=== PATIENT | female | born 1945 | race Caucasian/White ===

== ENCOUNTER 2020-04-20 11:09 | Outpatient (REF) | payer MEDICARE, MEDICAID, SELFPAY ==
[2020-04-20 13:49] LABS: MANUAL DIFF FLAG NO
[2020-04-20 13:56] LABS: Basophils Percent Auto 0.4 % (0-2); Eosinophils Absolute Auto 0.3 X10*3/uL (0.0-0.4); Eosinophils Percent Auto 3.7 % (0-4); Hematocrit 46.5 % (37-47); Hemoglobin 14.6 g/dl (12.0-16.0); Imm Gran Abs Auto 0.01 X10*3/uL (0.00-0.03); Imm Gran Pct Auto 0.1 % (0.0-0.4); Lymphocytes Absolute Auto 1.8 X10*3/uL (1.2-4.9); Mean Corpuscular HGB Conc 31.4 g/dl (31.0-35.0); Mean Corpuscular Hemoglobin 29.6 pg (27.0-33.0); Mean Corpuscular Volume 94.3 fL (80-98); Mean Platelet Volume 10.3 fL (9.4-12.3); Monocytes Absolute Auto 0.8 X10*3/uL (0.1-1.2); Monocytes Percent Auto 10.7 % (2-11); Neutrophils Absolute Auto 4.3 X10*3/uL (2.0-8.3); Neutrophils Percent Auto 60.1 % (45-73); Platelet Count 281 X10*3/uL (160-400); Red Blood Count 4.93 X10*6/uL (4.20-5.50); Red Cell Distribution Width 12.9 % (11.0-16.0); White Blood Count 7.1 X10*3/uL (4.8-10.8)
[2020-04-20 14:05] LABS: Estimated Average Glucose 134 mg/dL; Hemoglobin A1c % 6.3 %
[2020-04-20 14:26] LABS: Alanine Aminotransferase 15 U/L (0-31); Alkaline Phosphatase 95 U/L (39-117); Anion Gap 11 (12-20); Aspartate Amino Transferase 17 U/L (5-31); Bilirubin Total 0.7 mg/dL (0.0-1.0); Blood Urea Nitrogen 16 mg/dL (9-16); Calcium 8.7 mg/dL (8.4-10.2); Carbon Dioxide 31 mmol/L (22-29); Chloride 103 mmol/L (96-108); Estimated Glomerular Filt Rate > 60; Glucose Random 104 mg/dL (60-115); Potassium 4.2 mmol/l (3.3-5.1); Sodium 141 mmol/L (135-145); Total Protein 7.3 g/dL (6.5-8.0)
[2020-04-20 14:58] LABS: Creatinine Urine 355.75 mg/dL; Microalbum/Creatinine Ratio Ur 15.4 ug/mg cr
== END 2020-04-20 11:10 | disposition home or self-care (01) ==
LOC: HO.10HDL 11:09
PROVIDERS: PCP Internal Medicine; Visit Provider Internal Medicine
DX: I12.9 Hypertensive chronic kidney disease with stage 1 through stage 4 chronic kidney disease, or unspecified chronic kidney disease (principal); E11.22 Type 2 diabetes mellitus with diabetic chronic kidney disease; N18.9 Chronic kidney disease, unspecified
CPT/HCPCS: 36415; 80053; 82043; 83036; 85025

== ENCOUNTER 2021-02-01 11:56 | Outpatient (REF) | payer MEDICARE, MEDICAID, SELFPAY ==
[2021-02-01 14:10] LABS: MANUAL DIFF FLAG NO
[2021-02-01 14:16] LABS: Basophils Percent Auto 0.5 % (0-2); Eosinophils Absolute Auto 0.2 X10*3/uL (0.0-0.4); Eosinophils Percent Auto 3.4 % (0-4); Hemoglobin 14.6 g/dl (12.0-16.0); Imm Gran Abs Auto 0.02 X10*3/uL (0.00-0.03); Imm Gran Pct Auto 0.3 % (0.0-0.4); Lymphocytes Absolute Auto 1.5 X10*3/uL (1.2-4.9); Lymphocytes Percent Auto 23.8 % (20-40); Mean Corpuscular HGB Conc 31.7 g/dl (31.0-35.0); Mean Corpuscular Hemoglobin 29.7 pg (27.0-33.0); Mean Corpuscular Volume 93.5 fL (80-98); Mean Platelet Volume 10.7 fL (9.4-12.3); Monocytes Absolute Auto 0.7 X10*3/uL (0.1-1.2); Monocytes Percent Auto 10.8 % (2-11); Neutrophils Absolute Auto 3.8 X10*3/uL (2.0-8.3); Neutrophils Percent Auto 61.2 % (45-73); Platelet Count 270 X10*3/uL (160-400); Red Blood Count 4.92 X10*6/uL (4.20-5.50); Red Cell Distribution Width 12.9 % (11.0-16.0); White Blood Count 6.2 X10*3/uL (4.8-10.8)
[2021-02-01 14:25] LABS: Estimated Average Glucose 131 mg/dL; Hemoglobin A1c % 6.2 %
[2021-02-01 14:34] LABS: Alanine Aminotransferase 19 U/L (0-31); Alkaline Phosphatase 107 U/L (39-117); Anion Gap 13 (12-20); Aspartate Amino Transferase 17 U/L (5-31); Bilirubin Total 0.8 mg/dL (0.0-1.0); Blood Urea Nitrogen 15 mg/dL (9-16); C Reactive Protein 0.56 mg/dL (< or = 0.50); Calcium 9.4 mg/dL (8.4-10.2); Carbon Dioxide 29 mmol/L (22-29); Chloride 106 mmol/L (96-108); Cholesterol 171 mg/dL; Estimated Glomerular Filt Rate 55; Glucose Random 121 mg/dL (60-115); HDL Cholesterol 33 mg/dL; LDL Cholesterol Calculated 112 mg/dl; Potassium 4.2 mmol/L (3.3-5.1); Sodium 144 mmol/L (135-145); Total Protein 7.3 g/dL (6.5-8.0); Triglycerides 131 mg/dL
[2021-02-01 14:37] LABS: Creatinine Urine 257.84 mg/dL; Microalbum/Creatinine Ratio Ur 8.9 ug/mg cr
[2021-02-01 14:47] LABS: Vitamin D 25-OH Total 26.1 ng/mL (>30)
[2021-02-06 13:27] LABS: Alpha Fetoprotein 4.9 ng/mL
== END 2021-02-01 11:57 | disposition home or self-care (01) ==
LOC: HO.10HDL 11:56
PROVIDERS: Visit Provider Internal Medicine
DX: E11.9 Type 2 diabetes mellitus without complications (principal); R60.9 Edema, unspecified; I10 Essential (primary) hypertension; L40.9 Psoriasis, unspecified; E55.9 Vitamin D deficiency, unspecified
CPT/HCPCS: 36415; 80053; 80061; 82043; 82105; 82306; 83036; 85025; 86140

== ENCOUNTER 2021-10-11 07:36 | Outpatient (REF) | payer MEDICARE, MEDICAID, SELFPAY ==
[2021-10-11 08:43] LABS: MANUAL DIFF FLAG NO
[2021-10-11 08:47] LABS: Appearance Urine HAZY; Color Urine YELLOW; Glucose Urine UA NEG (NEG); Leukocyte Esterase Urine 1+ (NEG); Nitrite Urine NEG (NEG); PH 5.5 (5.0-8.0); Specific Gravity - Urine <= 1.005 (1.005-1.025); Urine Blood TRACE (NEG); Urine Ketones NEG (NEG); Urine Protein NEG (NEG-TRACE)
[2021-10-11 08:52] LABS: Basophils Percent Auto 0.3 % (0-2); Eosinophils Absolute Auto 0.2 X10*3/uL (0.0-0.4); Eosinophils Percent Auto 3.1 % (0-4); Hematocrit 43.7 % (37.0-47.0); Hemoglobin 14.1 g/dl (12.0-16.0); Imm Gran Abs Auto 0.02 X10*3/uL (0.00-0.03); Imm Gran Pct Auto 0.3 % (0.0-0.4); Lymphocytes Absolute Auto 1.6 X10*3/uL (1.2-4.9); Mean Corpuscular HGB Conc 32.3 g/dl (31.0-35.0); Mean Corpuscular Hemoglobin 29.9 pg (27.0-33.0); Mean Corpuscular Volume 92.8 fL (80.0-98.0); Mean Platelet Volume 10.2 fL (9.4-12.3); Monocytes Absolute Auto 0.8 X10*3/uL (0.1-1.2); Neutrophils Absolute Auto 4.9 x10*3/uL (2.0-8.3); Neutrophils Percent Auto 65.3 % (45-73); Platelet Count 267 X10*3/uL (160-400); Red Blood Count 4.71 X10*6/uL (4.20-5.50); Red Cell Distribution Width 13.1 % (11.0-16.0); White Blood Count 7.5 X10*3/uL (4.8-10.8)
[2021-10-11 08:55] LABS: Estimated Average Glucose 143 mg/dL; Hemoglobin A1c % 6.6 %
[2021-10-11 09:01] LABS: Alanine Aminotransferase 17 U/L (0-31); Albumin Level 3.8 g/dL (3.5-5.0); Alkaline Phosphatase 101 U/L (39-117); Anion Gap 12 (12-20); Aspartate Amino Transferase 17 U/L (5-31); Bilirubin Total 0.6 mg/dL (0.0-1.0); Blood Urea Nitrogen 15 mg/dL (9-16); Carbon Dioxide 30 mmol/L (22-29); Chloride 104 mmol/L (96-108); Estimated Glomerular Filt Rate > 60; Glucose Random 166 mg/dL (60-115); Potassium 3.9 mmol/L (3.3-5.1); Sodium 142 mmol/L (135-145)
[2021-10-11 09:05] LABS: B Type Natriuretic Peptide 123 pg/mL (<100)
[2021-10-11 09:16] LABS: Bacteria Urine TRACE /LPF; Squamous Epithelial Cell Urine 2+ /LPF
[2021-10-11 09:21] LABS: Vitamin D 25-OH Total 16.8 ng/mL (>30)
[2021-10-11 09:29] LABS: Creatinine Urine 68.61 mg/dL; Microalbum/Creatinine Ratio Ur 17.4 ug/mg cr
== END 2021-10-11 07:37 | disposition home or self-care (01) ==
LOC: HO.10HDL 07:36
PROVIDERS: Visit Provider Internal Medicine
DX: I12.9 Hypertensive chronic kidney disease with stage 1 through stage 4 chronic kidney disease, or unspecified chronic kidney disease (principal); N18.9 Chronic kidney disease, unspecified; R60.0 Localized edema; E55.9 Vitamin D deficiency, unspecified; L40.9 Psoriasis, unspecified; R73.03 Prediabetes
CPT/HCPCS: 36415; 80053; 81001; 82043; 82306; 83036; 83880; 85025

== ENCOUNTER → 2021-11-14 09:29 | Outpatient (REF) | payer MEDICARE, MEDICAID, SELFPAY ==
--- NOTE | 2021-11-14 09:34 | CA_ITS ---
Transthoracic Echocardiogram Patient (Last, First, Middle): Hayley Rueda M Gender: Female Date of : 1945 Age: 76 Procedure Date: 11/14/2021 Procedure Type: Transthoracic Echocardiogram Location: OP Height: 170.18 cm Weight: 113.4 kg BSA: 2.22 m2 Heart Rate: bpm BP: 120 / 69 mmHg Metal Model Maker: DANUTA Referring MD: Carroll Garcia MD Basket Braider: Reese Brito MD Symptoms: I35.0 NON RHEUM , Study Quality: Adequate ECG Rhythm: Sinus Conclusions: - 1. Normal LV systolic function with mild LVH with impaired relaxation filling pattern 2. Moderately dilated left atrium 3. Moderate to severe aortic stenosis with mean gradient of 44 mm Hg which is significantly increased compared to prior study 4. No gross pericardial effusion Findings Left Ventricle Normal left ventricular size and systolic function. There is mildly increased left ventricular wall thickness. The visually estimated ejection fraction is between 60-65%. Spectral Doppler is indicative of an impaired relaxation filling pattern. E/E prime ratio is between 8 and 15 consistent with indeterminate filling pressures. Right Ventricle Normal right ventricular cavity size and systolic function. Atria The left atrium is moderately dilated. Interatrial shunt cannot be excluded. The right atrium is normal in size. Aortic Valve There is moderate to severe aortic valve stenosis. Mitral Valve There is moderate anterior and severe posterior mitral leaflet thickening. There is severe mitral annular calcification. There is mild mitral valve regurgitation. Pulmonic Valve The pulmonic valve was not well visualized. Tricuspid Valve Likely normal tricuspid valve structure and function. Tricuspid regurgitation envelope is inadequate for calculation of right ventricular systolic pressure. Normal right atrial pressure. Great Vessels All visible segments of the aorta are normal in size. The pulmonary artery was not well visualized. Venous The inferior vena cava is normal in size and collapses greater than 50% with inspiration. Pericardium/Pleural There is no evidence of pericardial effusion. Prior Study Comparison Changes noted compared to prior study dated: 06/18/2018. Aortic stenosis has worsened Measurements 2D Linear Measurements IVSd: 1.50 0.6-0.9/0.6-1.0 cm LVIDd: 4.56 3.9-5.3/4.2-5.9 cm LVIDd Index: 2.05 2.4-3.2/2.2-3.1 cm/m2 LVIDs: 3.37 2.0-3.6 cm LVPWd: 1.31 0.7-1.1 cm LA Diam: 3.70 2.7-3.8/3.0-4.0 cm LAIDs Index: 1.67 1.5-2.3 cm/m2 LV Mass: 317.72 67-162/88-224 g LV Mass Index: 143.12 43-95/49-115 g/m2 LVOT Diam: 2.00 3.0+(-)1.3 cm 2D Systolic Function EF 4C: 58.80 >55% EF 2C: 57.00 >55% EF BiP: 59.70 >55% Mitral Valve MV VTI: 0.61 MV Pk Jakob: 1.72 MV Mn Jakob: 1.17 MV Pk Grad: 12.00 MV Mn Grad: 6.00 MV Pk E: 1.56 MV PK A: 1.83 MV Decel Time: 410.00 E/A: 0.90 E'Lateral: 5.98 E'Medial: 4.57 E/E' Med: 34.10 E/E' Lat: 26.10 PHT: 120.00 MVA PHT: 1.83 MVA Continuity: 2.30 Decel Kent: 3.81 Aortic Valve AoV Pk Jakob: 4.28 AoV Mn Jakob: 3.15 AoV VTI: 1.24 AoV Pk Grad: 73.00 Aov Mn Grad: 44.00 KELLI Cont.VTI: 1.03 LVOT LVOT Pk Jakob: 1.27 LVOT Mn Jakob: 0.92 LVOT VTI: 0.41 LVOT Pk Grad: 6.00 LVOT Mn Grad: 4.00 LVOT Diam: 2.00 LVOT Area: 3.14 Diastolic Function MV Pk E: 1.56 MV Pk A: 1.83 E/A: 0.90 E'Medial: 4.57 E/E' Med: 34.10 E' Laterial: 5.98 E/E' Lat: 26.10 Right Ventricle TAPSE (mm): 26.20 TVS' Jakob: 11.10 Tricuspid Valve RA Press: 3.00 Great Vessels Aorta Sinus of Valsalva: 3.16 2.0-3.[address] Ridge: 2.80 1.7-3.4 cm Ao Asc: 3.20 2.1-3.4 cm Updated in Other Vendor System with Status of Final Reese Brito MD electronically signed on 11/15/2021 2:14:42 PM with status of Final
== END ==
LOC: HO.CARD 09:29
PROVIDERS: Visit Provider Internal Medicine
DX: I35.0 Nonrheumatic aortic (valve) stenosis (principal)
CPT/HCPCS: 93306

== ENCOUNTER 2023-09-14 07:17 | Outpatient (REF) | payer MEDICARE, MEDICAID, SELFPAY ==
--- NOTE | ~2023-09-14 | XR_ITS ---
EXAMINATION: XR FOOT, RIGHT CLINICAL INFORMATION: Rule out heel spur. COMPARISON: None available. TECHNIQUE: AP, lateral, and oblique views of the right foot. FINDINGS: Radiopaque marker placed by technologist to indicate the area of concern as indicated by the patient along the posterior aspect of the calcaneus/heel. Hypertrophic change with ossific densities along the posterior aspect of the calcaneus at site of Achilles tendon insertion with focal swelling and thickening of the overlying soft tissues/tendon. The bones are diffusely demineralized. Moderate osteoarthritic changes in the first metatarsophalangeal joint, tarsometatarsal joints and in scattered IP joints of the toes. XR/XR foot RT min 3V IMPRESSION: 1. Hypertrophic change with tiny ossific densities along the posterior aspect of the calcaneus at site of Achilles tendon insertion with focal swelling and thickening of the overlying soft tissues/tendon. 2. Moderate osteoarthritic changes in the first metatarsophalangeal joint, tarsometatarsal joints and in scattered IP joints of the toes.
== END 2023-09-14 07:18 | disposition home or self-care (01) ==
LOC: HO.XRAY 07:17
PROVIDERS: PCP Internal Medicine; Visit Provider Internal Medicine
DX: M79.671 Pain in right foot (principal)
CPT/HCPCS: 73630

== ENCOUNTER 2024-10-15 10:09 | Outpatient (AMB) | payer MEDICARE, MEDICAID, SELFPAY ==
--- NOTE | 2024-10-15 10:11 | A.OFFPC_ITS ---
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 pain travels from pinky up to left upper arm. Pain in the finger joints and wrists bilaterally. Chronic right jaw pain Denies diabetes. Last A1C was 6.6%. She has hypertension. BP is elevated-says white coat. Controlled at home. She continues amlodipine and metoprolol. She has a history of moderate to severe aortic stenosis. Last echo 2021. Ordered today. Declines mammo, colonoscopy ROS see HPI PHYSICAL EXAM: GENERAL: Alert and oriented x 3. NAD EYES: EOMI. Anicteric. HENT: Moist mucous membranes. No scleral icterus. No cervical lymphadenopathy. LUNGS: Clear to auscultation bilaterally. CARDIOVASCULAR: Regular rate and rhythm. + murmur. No JVD. ABDOMEN: Soft, non-tender +bs EXTREMITIES: Non pitting edema. Non-tender. SKIN: Psoriatic changes bilateral feet NEUROLOGIC: No focal neurological deficits. CN II-XII grossly intact PSYCHIATRIC: Cooperative. Appropriate mood and affect Questionnaire PHQ-9 Over the last 2 weeks, how often have you been bothered by any of the following problems? 1. Little interest or pleasure in doing things: not at all 2. Feeling down, depressed, or hopeless: not at all 3. Trouble falling or staying asleep, or sleeping too much: not at all 4. Feeling tired or having little energy: not at all 5. Poor appetite or overeating: not at all 6. Feeling bad about yourself - or that you are a failure or have let yourself or your family down: not at all 7. Trouble concentrating on things, such as reading the newspaper or watching television: not at all 8. Moving or speaking so slowly that other people could have noticed. Or the opposite - being so fidgety or restless that you have been moving around a lot more than usual: not at all 9. Thoughts that you would be better off or of hurting yourself in some way: not at all Total score: 0 Depression Screening Interpretation: Negative Depression Screening Done: Yes 81329 - PHQ-9 Billing: Yes Source: Developed by Drs. Ernie Salcedo, Leslye Arredondo, Taye Lincoln and colleagues, with an educational anastasiia from [employer]. Thrive Questionnaire Date Thrive assessed: 10/15/24 I am a: Patient What is your living situation today?: I have a steady place to live Within the past 12 months, did the food you bought not last and you didn't have the money to get more?: Never true Within the past 12 months, did you worry whether your food would run out before you got money to buy more?: Never true Do you have trouble paying for medicines?: No Do you have trouble getting transportation to medical appointments?: No Do you have trouble paying your heating and electricity bill?: No Do you have trouble taking care of your child, family member or friend?: No Do you have trouble with day-to-day activities such as bathing, preparing meals, shopping, managing finances, etc.?: No Are you currently unemployed and looking for a job?: No Are you interested in more education?: No Please select the resources that you would like help with: None THRIVE Score: 0 RAMOS-7 AMB Questionnaire RAMOS-7 Date RAMOS - 7 assessed: 10/15/24 Feeling nervous, anxious, or on edge: 0 = Not at all Not being able to stop or control worryin = Not at all Worrying too much about different things: 0 = Not at all Trouble relaxin = Not at all Being so restless that it is hard to sit still: 0 = Not at all Becoming easily annoyed or irritable: 0 = Not at all Feeling afraid as if something awful might happen: 0 = Not at all Total RAMOS-7 score (0-4 normal; 5-9 mild; 10-14 moderate; 15-21 severe): 0 Source: Developed by Drs. Ernie Salcedo, Leslye Arredondo, Taye Lincoln and colleagues, with an educational anastasiia from [employer]. Physical exam (Primary Care) Vital Signs: Last Vital Signs Temp 97.5 F 10/15/24 10:14 Pulse 66 10/15/24 10:14 Resp 18 10/15/24 10:14 BP 168/80 H 10/15/24 10:14 Pulse Ox 99 10/15/24 10:14 BMI result Body Mass Index 38.5 PHQ-9: PHQ-9 Score PHQ-9: Total score 0 10/15/24 10:18 Depression Screening Interpretation: Negative Thrive Assessment: Date of Thrive Assessment Date Thrive assessed 10/15/24 10/15/24 10:18 Coding Level of Care Code New Pt Level 4 (66957) Complex EM visit Add On G2211 Diagnoses Primary hypertension I10 Hypertension type: primary hypertension Prediabetes R73.03 Aortic valve stenosis, etiology of cardiac valve disease unspecified I35.0 Cardiac valve disease etiology: etiology unspecified Left hand pain M79.642 Additional Codes PHQ-9 - 13314 - PHQ-9 Billing: Yes ([id number]) Assessment & Plan Assessment & Plan (1) Hypertension: Code(s): I10 - Essential (primary) hypertension Category: Medical Qualifiers: Hypertension type: primary hypertension Qualified Code(s): I10 - Essential (primary) hypertension (2) Prediabetes: Code(s): R73.03 - Prediabetes Category: Medical (3) Aortic stenosis: Code(s): I35.0 - Nonrheumatic aortic (valve) stenosis Category: Medical Qualifiers: Cardiac valve disease etiology: etiology unspecified Qualified Code(s): I35.0 - Nonrheumatic aortic (valve) stenosis (4) Left hand pain: Code(s): M79.642 - Pain in left hand Category: Medical Plan 78 year old to establish care past medical surgical social reviewed HTN-poor office control. Says normal at home. Advised to bring cuff to visit -needs updated echo bilateral hand pain-xr left ordered. Declines mobic. voltaren ordered Labs ordered Orders: Orders Complete Blood Count Auto Diff Today I10 - Essential (primary) hypertension, M79.641 - Pain in right hand, M79.642 - Pain in left hand, R73.03 - Prediabetes, Z13.0 - Encounter for screening for diseases of the blood and blood-forming organs and certain disorders involving the immune mechanism, Z13.228 - Encounter for screening for other metabolic disorders Comprehensive Met. Panel Today I10 - Essential (primary) hypertension, M79.641 - Pain in right hand, M79.642 - Pain in left hand, R73.03 - Prediabetes, Z13.0 - Encounter for screening for diseases of the blood and blood-forming organs and certain disorders involving the immune mechanism, Z13.228 - Encounter for screening for other metabolic disorders Rheumatoid Factor Today I10 - Essential (primary) hypertension, M79.641 - Pain in right hand, M79.642 - Pain in left hand, R73.03 - Prediabetes, Z13.0 - Encounter for screening for diseases of the blood and blood-forming organs and certain disorders involving the immune mechanism, Z13.228 - Encounter for screening for other metabolic disorders Cyclic Citrullinated Peptide Today I10 - Essential (primary) hypertension, M79.641 - Pain in right hand, M79.642 - Pain in left hand, R73.03 - Prediabetes, Z13.0 - Encounter for screening for diseases of the blood and blood-forming organs and certain disorders involving the immune mechanism, Z13.228 - Encounter for screening for other metabolic disorders Lipid Panel Today I10 - Essential (primary) hypertension, M79.641 - Pain in right hand, M79.642 - Pain in left hand, R73.03 - Prediabetes, Z13.0 - Encounter for screening for diseases of the blood and blood-forming organs and certain disorders involving the immune mechanism, Z13.228 - Encounter for screening for other metabolic disorders XR hand LT min 3V Today M79.642 - Pain in left hand CA echo transthoracic complete Today I35.0 - Nonrheumatic aortic (valve) stenosis Erythrocyte Sedimentation Rate Today I10 - Essential (primary) hypertension, M 79.641 - Pain in right hand, M79.642 - Pain in left hand, R73.03 - Prediabetes, Z13.0 - Encounter for screening for diseases of the blood and blood-forming organs and certain disorders involving the immune mechanism, Z13.228 - Encounter for screening for other metabolic disorders Hemoglobin A1c Today I10 - Essential (primary) hypertension, M79.641 - Pain in right hand, M79.642 - Pain in left hand, R73.03 - Prediabetes, Z13.0 - Encounter for screening for diseases of the blood and blood-forming organs and certain disorders involving the immune mechanism, Z13.228 - Encounter for screening for other metabolic disorders Medications: New amlodipine 5 mg PO DAILY 90 tabs 3RF diclofenac sodium 1% (Voltaren Arthritis Pain) apply to single elbow, wrist or hand; for hand includes palm/fingers/back of hand 2 grams topical QID 100 grams 3RF clobetasol 0.05% 1 appl topical DAILY 60 grams 1RF metoprolol succinate ER 25 mg PO DAILY 90 tabs 3RF
[2024-10-15 10:14] VITALS: BP 168/80; PULSE 66; RESP 18; TEMP 36.4; O2SAT 99; BMI 38.5
== END 2024-10-15 10:41 | disposition home or self-care (01) ==
LOC: HO.HMCHD 10:10
PROVIDERS: PCP Internal Medicine; Visit Provider Internal Medicine
DX: I10 Essential (primary) hypertension (principal); R73.03 Prediabetes; I35.0 Nonrheumatic aortic (valve) stenosis; M79.642 Pain in left hand

== ENCOUNTER → 2024-10-15 10:09 | Outpatient (BNVA) | payer MEDICARE, MEDICAID, SELFPAY | PROVIDERS: PCP Internal Medicine; Visit Provider Internal Medicine | DX: I10 Essential (primary) hypertension (principal); R73.03 Prediabetes; I35.0 Nonrheumatic aortic (valve) stenosis; M79.642 Pain in left hand | CPT/HCPCS: 96127; 99202 ==

== ENCOUNTER 2024-10-15 10:50 | Outpatient (REF) | payer MEDICARE, MEDICAID, SELFPAY ==
[2024-10-15 13:29] LABS: MANUAL DIFF FLAG NO
[2024-10-15 13:31] LABS: Basophils Percent Auto 0.6 % (0-2); Eosinophils Absolute Auto 0.3 X10*3/uL (0.0-0.4); Eosinophils Percent Auto 4.7 % (0-4); Hematocrit 43.9 % (37.0-47.0); Hemoglobin 14.1 g/dl (12.0-16.0); Imm Gran Abs Auto 0.01 X10*3/uL (0.00-0.03); Imm Gran Pct Auto 0.1 % (0.0-0.4); Lymphocytes Absolute Auto 1.2 X10*3/uL (1.2-4.9); Lymphocytes Percent Auto 17.8 % (20-40); Mean Corpuscular HGB Conc 32.1 g/dl (31.0-35.0); Mean Corpuscular Volume 93.4 fL (80.0-98.0); Mean Platelet Volume 10.1 fL (9.4-12.3); Monocytes Absolute Auto 0.8 X10*3/uL (0.1-1.2); Monocytes Percent Auto 10.9 % (2-11); Neutrophils Absolute Auto 4.6 x10*3/uL (2.0-8.3); Neutrophils Percent Auto 65.9 % (45-73); Platelet Count 269 X10*3/uL (160-400); Red Cell Distribution Width 12.9 % (11.0-16.0)
[2024-10-15 13:38] LABS: Estimated Average Glucose 134 mg/dL; Hemoglobin A1c % 6.3 % (<6.0); Total Hemoglobin (HGBA1C) 3712.7926 umol/L
[2024-10-15 13:58] LABS: Rheumatoid Factor 45.4 IU/mL (<15.0)
[2024-10-15 13:59] LABS: Alanine Aminotransferase 15 U/L (0-31); Albumin Level 4.1 g/dL (3.5-5.0); Alkaline Phosphatase 95 U/L (39-117); Anion Gap 9 (12-20); Aspartate Amino Transferase 22 U/L (5-31); Bilirubin Total 0.7 mg/dL (0.0-1.0); Blood Urea Nitrogen 11 mg/dL (9-16); Calcium 9.2 mg/dL (8.4-10.2); Carbon Dioxide 32 mmol/L (22-29); Chloride 105 mmol/L (96-108); Cholesterol 168 mg/dL (<200); Estimated Glomerular Filt Rate 57; Glucose Random 120 mg/dL (60-115); HDL Cholesterol 36 mg/dL (>40); LDL Cholesterol Calculated 105 mg/dL (<100); Sodium 142 mmol/L (135-145); Total Protein 7.1 g/dL (6.5-8.0); Triglycerides 139 mg/dL (<150)
[2024-10-15 14:18] LABS: Erythrocyte Sedimentation Rate 27 MM/HR (0-20)
[2024-10-21 13:48] LABS: Cyclic Citrullinated Peptide <16 UNITS
== END 2024-10-15 10:51 | disposition home or self-care (01) ==
LOC: HO.10HDL 10:50
PROVIDERS: Visit Provider Internal Medicine
DX: R73.03 Prediabetes (principal); I10 Essential (primary) hypertension; M79.642 Pain in left hand; M79.641 Pain in right hand; Z13.0 Encounter for screening for diseases of the blood and blood-forming organs and certain disorders involving the immune mechanism; Z13.228 Encounter for screening for other metabolic disorders
CPT/HCPCS: 36415; 80053; 80061; 83036; 85025; 85652; 86200; 86431

== ENCOUNTER 2024-11-03 13:22 | Outpatient (REF) | payer MEDICARE, MEDICAID, SELFPAY ==
--- NOTE | ~2024-11-03 | XR_ITS ---
EXAMINATION: XR HAND, LEFT CLINICAL INFORMATION: M79.642 - Pain in left hand COMPARISON: None available. TECHNIQUE: PA, lateral, and oblique views of the left hand. FINDINGS: There is moderate to severe narrowing of the DIP joint spaces and mild to moderate narrowing of the PIP joints. There are marginal osteophytes and ossified periarticular bony debris. There is severe asymmetric narrowing of the IP joint of thumb with marginal osteophytes. There is minimal narrowing of the first carpal metacarpal joint with marginal osteophytes. There is mild irregularity and osteophytes involving the fourth and fifth metacarpal head. XR/XR hand LT min 3V IMPRESSION: Moderate osteoarthritis Electronically signed by: Jason Daniels MD 11/03/2024 01:46 PM EDT
== END 2024-11-03 13:23 | disposition home or self-care (01) ==
LOC: HO.XRAY 13:22
PROVIDERS: PCP Internal Medicine; Visit Provider Internal Medicine
DX: M79.642 Pain in left hand (principal)
CPT/HCPCS: 73130

== ENCOUNTER → 2024-11-03 13:30 | Outpatient (BNV) | payer MEDICARE, MEDICAID, SELFPAY | PROVIDERS: PCP Internal Medicine; Visit Provider Radiology Diagnostic Radiology | DX: M19.042 Primary osteoarthritis, left hand (principal) | CPT/HCPCS: 73130 ==